=== PATIENT | female | born 1960 | race Caucasian/White ===

== ENCOUNTER → 2016-06-18 | Outpatient (CLI) | payer BC ==
--- NOTE | 2016-06-19 13:56 | MY ---
EXAMINATION: Bilateral digital mammography utilizing CAD. HISTORY: Screening exam. Comparison is made to previous studies dated 05/22/2015, 05/19/2014, 07/08/19 13. FINDINGS: Bilateral scattered fibroglandular densities. No suspicious calcifications, masses or a rchitectural distortions. No pathologic appearing lymph nodes, no abnormal skin thickening or nipp le inversion. CAD highlighted regions appear normal at this time. IMPRESSION: BI-RADS category I - negative mammogram. Continued screening according to ACR-ACS gu idelines suggested. THE FALSE-NEGATIVE RATE OF MAMMOGRAM IS APPROXIMATELY 10%. MANAGEMENT OF A PALPABLE ABNORMALITY MUST BE BASED UPON CLINICAL GROUNDS. SENSITIVITY FOR DETECTION OF ABNORMALITIES IN DENSE BREASTS IS LOW. NOTE: A letter will be sent to the patient regarding findings. [facility] -- [place] [phone] - FAX [phone]
== END ==
LOC: MW.MAM 15:53
PROVIDERS: ATTEND Nurse Practitioner Women's Health
DX: Z12.31 Encounter for screening mammogram for malignant neoplasm of breast (principal)
CPT/HCPCS: G0202; G0202-26

== ENCOUNTER → 2016-06-19 | Outpatient (CLI) | payer BC | END | disposition home or self-care (01) | LOC: MW.CHIM 09:21 | PROVIDERS: ATTEND Internal Medicine | DX: M19.90 Unspecified osteoarthritis, unspecified site (principal) | CPT/HCPCS: 36415; 85652; 86140 ==

== ENCOUNTER 2017-01-03 07:48 | Day surgery (SDC) | payer BC ==
[~2017-01-03 07:48] MED LIST: Bupivacaine 0.25% 10 ML SDV ONE; Dexamethasone/Tobramycin 0.1-0.3% Ophth Oint 3.5 GM Tube ONE
--- NOTE | 2017-01-03 07:55 | PCM.PREANE ---
Preanesthetic Assessment - Anesthesia/Transfusion/Family Hx Anesthesia History: Prior Anesthesia Without Reaction Family History of Anesthesia Reaction: No Transfusion History: Prior Transfusion Reaction Type of Transfusion Reactions: Reports: Unknown - Review of Systems General: No Symptoms Pulmonary: No Symptoms Cardiovascular: No Symptoms Gastrointestinal: No Symptoms Neurological: No Symptoms Other: Reports: None - Physical Assessment Height: 1.73 m Weight: 78.925 kg ASA Class: 2 Mental Status: Alert & Oriented x3 Airway Class: Mallampati = 2 Dentition: Reports: Normal Dentition ROM/Head Extension: Full Lungs: Clear to Auscultation, Normal Respiratory Effort Cardiovascular: Regular Rate, Regular Rhythm - Allergies Allergies/Adverse Reactions: Allergies Allergy/AdvReac Type Severity Reaction Status Date / Time No Known Allergies Allergy Verified 01/02/17 10:55 - Anesthesia Plan Pre-Op Medication Ordered: None - Acknowledgements Anesthesia Type Planned: MAC Pt an Appropriate Candidate for the Planned Anesthesia: Yes Alternatives and Risks of Anesthesia Discussed w Pt/Guardian: Yes Pt/Guardian Understands and Agrees with Anesthesia Plan: Yes PreAnesthesia Questionnaire HEENT History: Reports: Allergic Rhinitis, Other (See Below) Other HEENT History: wears glasses Cardiovascular History: Reports: High Cholesterol Other Cardiovascular History: has right Carotid bruit Respiratory History: Reports: None Gastrointestinal History: Reports: Irritable Bowel Syndrome Other Gastrointestinal History: controls with diet Genitourinary History: Reports: Other (See Below) Other Genitourinary History: hx of Interstitial Cystitis 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: Musculoskeletal History: Reports: Fibromyalgia Other Musculoskeletal History: hands Neurological History: Reports: Other (See Below) Other Neuro History: hx of motion sickness Psychiatric History: Reports: Anxiety, Depression Endocrine/Metabolic History: Reports: None Hematologic History: Reports: Blood Transfusion(s) Immunologic History: Reports: None Oncologic (Cancer) History: Reports: None Dermatologic History: Reports: None - Past Surgical History HEENT Surgical History: Reports: Tonsillectomy GI Surgical History: Reports: Appendectomy, Colonoscopy Female Surgical History: Reports: Hysterectomy, Other (See Below) Other Female Surgeries/Procedures: several Laparoscopies - SUBSTANCE USE Smoking Status *Q: Never Smoker Recreational Drug Use History: No - HOME MEDS Home Medications: Home Meds Cetirizine HCl [Zyrtec] 1 tab PO DAILY 06/14/15 [History] Estradiol [Climara] 1 patch TOP ASDIRECTED 06/14/15 [History] Progesterone,Micronized [Progesterone] 1 cap PO BEDTIME 06/14/15 [History] Venlafaxine HCl [Venlafaxine ER] 1 cap PO DAILY 06/14/15 [History] Meloxicam 7.5 mg PO ASDIRECTED 01/02/17 [History] atorvaSTATin [Lipitor] 10 mg PO DAILY 01/02/17 [History] - CURRENT (IN HOUSE) MEDS Current Meds: Current Medications Hydrocodone Bitart/Acetaminophen ([place] 325-5 Mg) 1 tab PO Q4H PRN PRN Reason: Pain Bupivacaine HCl (Sensorcaine-Mpf 0.25%) 10 ml INJECT ONETIME ONE Stop: 01/03/17 09:01 Cefazolin Sodium/Dextrose 2 gm (/ Premix) 50 mls @ 100 mls/hr IV ONETIME ONE Stop: 01/03/17 09:29 Lactated Ringer's (Ringers, Lactated) 1,000 mls @ 125 mls/hr IV ASDIRECTED [facility] Tobramycin/Dexamethasone (Tobradex Ophth Oint) 2.5 gm EYEBOTH ONETIME ONE Stop: 01/03/17 09:01 Discontinued Medications Bupivacaine HCl (Sensorcaine-Mpf 0.25%) Confirm Administered Dose 10 ml .ROUTE .STK-MED ONE Stop: 01/03/17 07:29 Tobramycin/Dexamethasone (Tobradex Ophth Oint) Confirm Administered Dose 3.5 gm .ROUTE .STK-MED ONE Stop: 01/03/17 07:30
[2017-01-03] MEDS ORDERED: Propofol 200 MG/20 ML SDV ONE ×2 (08:56→10:28)
[2017-01-03] MEDS ORDERED: Ondansetron 4 MG/2 ML SDV ONE (08:56)
[2017-01-03] MEDS ORDERED: Dexamethasone 4 MG/ML 5 ML MDV ONE (08:56)
[2017-01-03] MEDS ORDERED: Midazolam 1 MG/ML 2 ML SDV ONE (08:57)
[2017-01-03] MEDS ORDERED: fentaNYL 100 MCG/2 ML SDV ONE ×2 (08:57→10:18)
[2017-01-03] MEDS ORDERED: Acetaminophen/HYDROcodone 325-5 MG Tab PO PRN (09:00)
[2017-01-03] MEDS ORDERED: Bupivacaine 0.25% 10 ML SDV INJECT ONE (09:00)
[2017-01-03] MEDS ORDERED: ceFAZolin 2 GM in Premix Bag 1 BAG IV ONE (09:00)
[2017-01-03] MEDS ORDERED: Lactated Ringers 1,000 ML IV SCH (09:00)
[2017-01-03] MEDS ORDERED: Dexamethasone/Tobramycin 0.1-0.3% Ophth Oint 3.5 GM Tube EYEBOTH ONE (09:00)
[2017-01-03] MEDS ORDERED: Tetracaine 0.5% Ophth Soln 15 ML Bottle ONE (09:45)
[2017-01-03] MEDS ORDERED: Bupivacaine 0.25% 10 ML SDV ONE (09:48)
[2017-01-03] MEDS ORDERED: Ketorolac 30 MG/ML SDV ONE (10:12)
--- NOTE | 2017-01-03 11:07 | PCM.POSTAN ---
POST ANESTHESIA ASSESSMENT - MENTAL STATUS Mental Status: Alert, Oriented - RESPIRATORY Respiratory Status: Respiratory Rate WNL, Airway Patent, O2 Saturation Stable - CARDIOVASCULAR CV Status: Pulse Rate WNL, Blood Pressure Stable - GASTROINTESTINAL GI Status: No Symptoms - PAIN Pain Score: 0 - POST OP HYDRATION Hydration Status: Adequate & Stable
--- NOTE | 2017-01-03 11:25 | PCM48HPAN ---
Post Anesthesia Note - EVALUATION WITHIN 48HRS OF ANESTHETIC Vital Signs in Normal Range: Yes Patient Participated in Evaluation: Yes Respiratory Function Stable: Yes Airway Patent: Yes Cardiovascular Function Stable: Yes Hydration Status Stable: Yes Pain Control Satisfactory: Yes Nausea and Vomiting Control Satisfactory: Yes Mental Status Recovered: Yes
[2017-01-03 11:53] VITALS: BP 122/64
--- NOTE | 2017-01-10 14:33 | PCM.OPNOTE ---
- General Post-Op/Procedure Note Date of Surgery/Procedure: 01/03/17 Operative Procedure(s): bilateral upper eyelid levator advancement - external Pre Op Diagnosis: blepharoptosis bilateral Post-Op Diagnosis: Same Anesthesia Technique: Local, MAC Primary Surgeon: Anita Joe Capacity Planner: Piedad Peña Complications: None Condition: Good
--- NOTE | 2017-01-10 21:49 | OR ---
SURGEON: LAURA HOLT MD DATE OF PROCEDURE: 01/03/2017 PREOPERATIVE DIAGNOSIS: Bilateral blepharoptosis of upper lids. POSTOPERATIVE DIAGNOSIS: Bilateral blepharoptosis of upper lids. PROCEDURE: Bilateral upper eyelid levator advancement through an external approach. ANESTHESIA: Local, MAC. FIREMAN: JOSE ROBERTO Montiel. INDICATIONS: Ms. 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 It has worsened over time. Her family has this as well. Risks and benefits of external levator advancement were discussed with her, and she was in agreement to proceed. She does have visual obstruction from this. Risks were discussed including, but not limited to bleeding, infection, damage to underlying or overlying structures, possible need for future interventions, and possible scarring. PROCEDURE IN DETAIL: After informed consent was obtained and placed on the chart, the patient was brought to the operating theater and laid in a supine position. After adequate anesthesia and she had been prepped and draped, attention was then paid to the external incision on the upper eyelids as planned for the amount of skin resection likely needed after the levator advancement. A #15 blade was used to dissect through the skin and subcutaneous tissue until direct visualization of the orbicularis muscle. This was divided using Bovie electrocautery and the underlying tissues were appreciated. Attention was then paid to meticulous dissection until the levator itself was appreciated and the upper edge of the tarsus was appreciated. Corneal protectors were placed using TobraDex ointment in order to protect the orbit after anesthetizing this with tetracaine eyedrops. Once the superior edge of the tarsus and the distal edge of the levator were appreciated, the in-between tissue was plicated using deep 4-0 clear nylon sutures. Once adequately placed, the eyelid was appreciated to be in excellent position, and meticulous hemostasis was obtained. A small amount of cautery on the underlying muscle was attempted to allow retraction. Once this was completed, the excess skin was removed from the lid, and this was closed using the Monocryl stitches for the muscle, deep Monocryl stitches for the dermis in a sparing fashion, and then running 6-0 Prolene for the skin. Steri-Strips were placed and dressed with TobraDex ointment. A mirror procedure was completed on the other side, taking out exact measured amounts for symmetry. A little under 1 cm was taken bilaterally for both the levator and the excess skin. Once this was completed, the eyes were appreciated to be just lightly closing with the eyes resting. Corneal protectors were easily removed bilaterally. Eyes were irrigated and dressed with TobraDex ointment as well. The patient tolerated this well, and all counts and needles were correct at the end of the case. FOLLOWUP INSTRUCTIONS: The patient will see us in clinic in 1 week or sooner if any problems, questions, or concerns. FELIPE / KULDIP /[id number] NEREYDA
== END 2017-01-03 12:04 | disposition home or self-care (01) ==
LOC: MW.SDS 07:48
PROVIDERS: ATTEND Plastic Surgery
DX: H02.403 Unspecified ptosis of bilateral eyelids (principal); F41.9 Anxiety disorder, unspecified; F32.9 Major depressive disorder, single episode, unspecified; E78.00 Pure hypercholesterolemia, unspecified; K59.09 Other constipation; Z79.890 Hormone replacement therapy; Z91.09 Other allergy status, other than to drugs and biological substances; Z90.710 Acquired absence of both cervix and uterus; Z79.899 Other long term (current) drug therapy; Z90.49 Acquired absence of other specified parts of digestive tract; Z98.890 Other specified postprocedural states
CPT/HCPCS: 67904; A9270; J0690; J1100; J1885; J2250; J2405; J3010; J7120; 00103; J2704

== ENCOUNTER 2017-05-14 07:24 | Day surgery (SDC) | payer BC ==
[2017-05-14] MEDS ORDERED: Bupivacaine 25%/EPINEPHrine/PF 30 ML ONE (07:32)
[2017-05-14] MEDS ORDERED: Octyl 2-Cyanoacrylate 1 Tube ONE (07:32)
[2017-05-14] MEDS ORDERED: Dexamethasone/Tobramycin 0.1-0.3% Ophth Oint 3.5 GM Tube ONE (07:32)
[2017-05-14] MEDS ORDERED: Dexamethasone/Tobramycin 0.1-0.3% Ophth Oint 3.5 GM Tube EYEBOTH SCH (08:00)
[2017-05-14] MEDS ORDERED: ceFAZolin 2 GM in Premix Bag 1 BAG IV ONE (08:00)
[2017-05-14] MEDS ORDERED: Bupivacaine 0.25%/EPINEPHrine 1:200,000 10 ML SDV INJECT ONE (08:00)
[2017-05-14] MEDS ORDERED: Lactated Ringers 1,000 ML IV SCH (08:00)
[2017-05-14] MEDS ORDERED: Acetaminophen/HYDROcodone 325-5 MG Tab PO PRN (08:00)
--- NOTE | 2017-05-14 08:07 | PCM.PREANE ---
Preanesthetic Assessment - Anesthesia/Transfusion/Family Hx Anesthesia History: Prior Anesthesia Without Reaction Family History of Anesthesia Reaction: No Transfusion History: Prior Transfusion Without Reaction Type of Transfusion Reactions: Reports: Unknown - Review of Systems General: No Symptoms Pulmonary: No Symptoms Cardiovascular: No Symptoms Gastrointestinal: No Symptoms Neurological: No Symptoms Other: Reports: None (except toothache) - Physical Assessment O2 Sat by Pulse Oximetry: 99 Respiratory Rate: 16 Vital Signs: Last Vital Signs Temp 36.8 C 05/14/17 07:56 Pulse 80 05/14/17 07:56 Resp 16 05/14/17 07:56 BP 142/76 H 05/14/17 07:56 Pulse Ox 99 05/14/17 07:56 Height: 1.73 m Weight: 77.111 kg ASA Class: 2 Mental Status: Alert & Oriented x3 Airway Class: Mallampati = 2 Dentition: Reports: Normal Dentition ROM/Head Extension: Full Lungs: Clear to Auscultation, Normal Respiratory Effort Cardiovascular: Regular Rate, Regular Rhythm - Allergies Allergies/Adverse Reactions: Allergies Allergy/AdvReac Type Severity Reaction Status Date / Time No Known Allergies Allergy Verified 05/12/17 10:13 - Anesthesia Plan Pre-Op Medication Ordered: None - Acknowledgements Anesthesia Type Planned: MAC Pt an Appropriate Candidate for the Planned Anesthesia: Yes Alternatives and Risks of Anesthesia Discussed w Pt/Guardian: Yes Pt/Guardian Understands and Agrees with Anesthesia Plan: Yes PreAnesthesia Questionnaire HEENT History: Reports: Allergic Rhinitis, Other (See Below) Other HEENT History: wears glasses Cardiovascular History: Reports: High Cholesterol Other Cardiovascular History: has right Carotid bruit Respiratory History: Reports: None Gastrointestinal History: Reports: Irritable Bowel Syndrome Other Gastrointestinal History: controls with diet Genitourinary History: Reports: Other (See Below) Other Genitourinary History: hx of Interstitial Cystitis 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: Musculoskeletal History: Reports: Fibromyalgia Other Musculoskeletal History: hands Neurological History: Reports: Other (See Below) Other Neuro History: hx of motion sickness Psychiatric History: Reports: Anxiety, Depression Endocrine/Metabolic History: Reports: None Hematologic History: Reports: Blood Transfusion(s) Immunologic History: Reports: None Oncologic (Cancer) History: Reports: None Dermatologic History: Reports: None - Past Surgical History Head Surgeries/Procedures: Reports: None HEENT Surgical History: Reports: Tonsillectomy, Other (See Below) Other HEENT Surgeries/Procedures: previous Levator Repair Cardiovascular Surgical History: Reports: None Respiratory Surgical History: Reports: None GI Surgical History: Reports: Appendectomy, Colonoscopy Female Surgical History: Reports: Hysterectomy, Other (See Below) Other Female Surgeries/Procedures: several Laparoscopies Endocrine Surgical History: Reports: None Neurological Surgical History: Reports: None Musculoskeletal Surgical History: Reports: None Oncologic Surgical History: Reports: None Dermatological Surgical History: Reports: None - SUBSTANCE USE Smoking Status *Q: Never Smoker Recreational Drug Use History: No - HOME MEDS Home Medications: Home Meds Cetirizine HCl [Zyrtec] 1 tab PO DAILY 06/14/15 [History] Estradiol [Climara] 1 patch TOP ASDIRECTED 06/14/15 [History] Progesterone,Micronized [Progesterone] 1 cap PO BEDTIME 06/14/15 [History] Venlafaxine HCl [Venlafaxine ER] 1 cap PO DAILY 06/14/15 [History] Pentosan Polysulfate Sodium [Elmiron] 1 tab PO ASDIRECTED PRN 05/12/17 [History] Rosuvastatin Calcium 10 mg PO DAILY 05/12/17 [History] - CURRENT (IN HOUSE) MEDS Current Meds: Current Medications Hydrocodone Bitart/Acetaminophen ([place] 325-5 Mg) 1 tab PO Q4H PRN PRN Reason: Pain Cefazolin Sodium/Dextrose 2 gm (/ Premix) 50 mls @ 100 mls/hr IV ONETIME ONE Stop: 05/14/17 08:29 Lactated Ringer's (Ringers, Lactated) 1,000 mls @ 125 mls/hr IV ASDIRECTED ANNA Last Admin: 05/14/17 07:53 Dose: 125 mls/hr Tetracaine (Tetracaine 0.5% Ophth Soln) 1 ml EYEBOTH ASDIRECTED ONE Stop: 05/14/17 09:01 Tobramycin/Dexamethasone (Tobradex Ophth Oint) 1 gm EYEBOTH Q4H [facility] Discontinued Medications Bupivacaine HCl/Epinephrine Bitart (Marcaine 0.25%/Epinephrine 1:200,000) 10 ml INJECT ONETIME ONE Stop: 05/14/17 08:01 Bupivacaine HCl/Epinephrine Bitart (Sensorc Mpf 0.25%-Epi 1:[id number]) Confirm Administered Dose 30 mls @ as directed .ROUTE .STK-MED ONE Stop: 05/14/17 07:33 Octyl Cyanoacrylate (Dermabond Advance) Confirm Administered Dose 1 applic .ROUTE .STK-MED ONE Stop: 05/14/17 07:33 Tobramycin/Dexamethasone (Tobradex Ophth Oint) Confirm Administered Dose 3.5 gm .ROUTE .STK-MED ONE Stop: 05/14/17 07:33
[2017-05-14] MEDS ORDERED: Lidocaine 2% 5 ML SDV ONE (08:53)
[2017-05-14] MEDS ORDERED: fentaNYL 100 MCG/2 ML SDV ONE (08:54)
[2017-05-14] MEDS ORDERED: Midazolam 1 MG/ML 2 ML SDV ONE (08:54)
[2017-05-14] MEDS ORDERED: Propofol 200 MG/20 ML SDV ONE (08:54)
[2017-05-14] MEDS ORDERED: ceFAZolin/Dextrose,Iso-Osmotic 2 GM/50 ML Duplex Bag IV ONE (08:58)
[2017-05-14] MEDS ORDERED: Tetracaine 0.5% Ophth Soln 15 ML Bottle EYEBOTH ONE (09:00)
[2017-05-14] MEDS ORDERED: Dexamethasone 4 MG/ML 5 ML MDV ONE (09:29)
--- NOTE | 2017-05-14 11:22 | PCM.POSTAN ---
POST ANESTHESIA ASSESSMENT - MENTAL STATUS Mental Status: Alert, Oriented - RESPIRATORY Respiratory Status: Respiratory Rate WNL, Airway Patent, O2 Saturation Stable - CARDIOVASCULAR CV Status: Pulse Rate WNL, Blood Pressure Stable - GASTROINTESTINAL GI Status: No Symptoms - POST OP HYDRATION Hydration Status: Adequate & Stable
--- NOTE | 2017-05-14 11:23 | PCM48HPAN ---
Post Anesthesia Note - EVALUATION WITHIN 48HRS OF ANESTHETIC Vital Signs in Normal Range: Yes Patient Participated in Evaluation: Yes Respiratory Function Stable: Yes Airway Patent: Yes Cardiovascular Function Stable: Yes Hydration Status Stable: Yes Pain Control Satisfactory: Yes Nausea and Vomiting Control Satisfactory: Yes Mental Status Recovered: Yes Resp Rate: 14
[2017-05-14 12:39] VITALS: BP 128/72
--- NOTE | 2017-05-14 17:15 | PCM.OPNOTE ---
- General Post-Op/Procedure Note Date of Surgery/Procedure: 05/14/17 Operative Procedure(s): bilateral revision of levator advancement for blepharoptosis - previous significant post op swelling Pre Op Diagnosis: recurrence of blepharoptosis after levator advancement Post-Op Diagnosis: Same Anesthesia Technique: Local, MAC Primary Surgeon: Anita Joe Welt Drawer: Piedad Peña Complications: None Condition: Good Free Text/Narrative:: Intake & Output 05/14/17 05/14/17 05/14/17 07:59 15:59 23:59 Intake Total 1300 Balance 1300
--- NOTE | 2017-05-15 19:14 | OR ---
SURGEON: LAURA HOLT MD DATE OF PROCEDURE: 05/14/2017 PREOPERATIVE DIAGNOSIS: Recurrence of blepharoptosis after levator advancement. POSTOPERATIVE DIAGNOSIS: Recurrence of blepharoptosis after levator advancement.. PROCEDURE: Bilateral revision of levator advancement for blepharoptosis with previous significant postop swelling resulting in compromise of the outcome. ANESTHESIA: Local MAC. UTILITY WORKER [place]: JOSE ROBERTO Montiel. INDICATIONS: Ms. Velazco is a 56-year-old female with status post bilateral levator advancement. Unfortunately, postoperatively she had some significant swelling, which resulted in recurrence. Risks and benefits of revision were discussed with her and she was in agreement to proceed. Risks were including, but not limited to, bleeding, infection, damage to underlying or overlying structures, possible need for future interventions, and possible scarring. PROCEDURE IN DETAIL: After informed consent was obtained and placed on the chart, the patient was brought to the operating theater and laid in supine position. After adequate local MAC anesthesia was obtained, the area was prepped and draped and marked appropriately for a minimal skin excision. The area was anesthetized with 0.25% Marcaine and then the previous scar was excised. Dissection was carried through the muscle layer after corneal protector with TobraDex ointment and tetracaine eyedrops were placed. The levator aponeurosis was reached and was appreciated on the left to be significantly scar to the septum. The levator repair was appreciated to be intact, still somewhat attenuated. The previous sutures were removed and the levator was readvanced and secured in place. Once adequately secured, the area was copiously irrigated and meticulous hemostasis was obtained. The septum and the muscular layer were closed using a running 5-0 Monocryl with buried stitches. Once this was completed, meticulous hemostasis and contracture of the muscle was obtained, and the skin was closed using a 6-0 Prolene in a running subcuticular fashion without any Monocryl to avoid swelling and irritation. This was completed on both sides in a symmetric fashion and less scarring was noted on the right side. The ends of the sutures were Steri- Stripped in place, and the patient tolerated this well. All counts and needles were correct at the end of the case. FOLLOWUP INSTRUCTIONS: The patient will see us in one week sooner if any problems, questions, or concerns. FELIPE / KULDIP /[id number]
== END 2017-05-14 11:35 | disposition home or self-care (01) ==
LOC: MW.SDS 07:24
PROVIDERS: ATTEND Plastic Surgery
DX: H02.423 Myogenic ptosis of bilateral eyelids (principal); J30.9 Allergic rhinitis, unspecified; F41.9 Anxiety disorder, unspecified; M19.90 Unspecified osteoarthritis, unspecified site; H61.23 Impacted cerumen, bilateral; K59.09 Other constipation; F32.9 Major depressive disorder, single episode, unspecified; E34.9 Endocrine disorder, unspecified; E78.00 Pure hypercholesterolemia, unspecified; G47.00 Insomnia, unspecified; E89.40 Asymptomatic postprocedural ovarian failure; Z90.710 Acquired absence of both cervix and uterus; Z91.09 Other allergy status, other than to drugs and biological substances; Z79.899 Other long term (current) drug therapy
CPT/HCPCS: 67904; A9270; J0690; J1100; J2250; J3010; J7120; 00103; J2704

== ENCOUNTER 2018-04-30 12:48 | Observation (INO) | payer BC ==
--- NOTE | 2018-04-30 12:58 | EDM.PDOC ---
ED HPI GENERAL MEDICAL PROBLEM - General Chief Complaint: Chest Pain Stated Complaint: CHEST PAIN Time Seen by Provider: 04/30/18 12:58 Source of Information: Reports: Patient History Limitations: Reports: No Limitations - History of Present Illness INITIAL COMMENTS - FREE TEXT/NARRATIVE: HISTORY AND PHYSICAL: History of present illness: Patient is a 57-year-old female here with complaint of chest pain. She states chest began at noon today, came on suddenly and severe. She states she was feeling short of breath and mouth was dry. She states she had some pain in to her left arm. She thought it was GERD and took a Tums but did not improve. She states pain is improved on arrival. She has history of fibromyalgia and anxiety/ depression. Review of systems: As per history of present illness and below otherwise all systems reviewed and negative. Past medical history: As per history of present illness and as reviewed below otherwise noncontributory. Surgical history: As per history of present illness and as reviewed below otherwise noncontributory. Social history: No reported history of drug or alcohol abuse. Family history: As per history of present illness and as reviewed below otherwise noncontributory. Physical exam: General: Patient sitting comfortably in no acute distress and nontoxic appearing HEENT: Atraumatic, normocephalic, pupils reactive, negative for conjunctival pallor or scleral icterus, mucous membranes moist, throat clear, neck supple, nontender, trachea midline. No meningeal signs. Lungs: Clear to auscultation, breath sounds equal bilaterally, chest nontender. Heart: S1S2, regular, negative for clicks, rubs, or overt murmur. Abdomen: Soft, nondistended, nontender. Negative for masses or hepatosplenomegaly. Negative for costovertebral tenderness. Pelvis: Stable nontender. Genitourinary: Deferred. Rectal: Deferred. Extremities: Atraumatic, negative for cords or calf pain. Neurovascular unremarkable. Neuro: Awake, alert, oriented. Cranial nerves II through XII unremarkable. Cerebellum unremarkable. Motor and sensory unremarkable throughout. Exam nonfocal. Notes: Diagnostics: CBC, CMP, troponin, EKG, CXR Therapeutics: Aspirin 324mg chewed Prescriptions: Impression: Chest pain Plan: Discussed with Dr. Ace, patient will be admitted to observation on telemetry for ACS r/o. Definitive disposition and diagnosis as appropriate pending reevaluation and review of above. chest pain Pain Score (Numeric/FACES): 9 - Related Data Allergies Allergy/AdvReac Type Severity Reaction Status Date / Time No Known Allergies Allergy Verified 05/12/17 10:13 Home Meds: Home Meds Cetirizine HCl [Zyrtec] 1 tab PO DAILY 06/14/15 [History] Estradiol [Climara] 1 patch TOP ASDIRECTED 06/14/15 [History] Progesterone,Micronized [Progesterone] 1 cap PO BEDTIME 06/14/15 [History] Venlafaxine HCl [Venlafaxine ER] 1 cap PO DAILY 06/14/15 [History] Pentosan Polysulfate Sodium [Elmiron] 1 tab PO ASDIRECTED PRN 05/12/17 [History] Rosuvastatin Calcium 10 mg PO DAILY 05/12/17 [History] Acetaminophen/HYDROcodone [[place] 325-5 MG] 1 tab PO Q4H PRN #30 tablet 05/14/17 [Rx] Dexamethasone/Tobramycin [Tobradex Ophth Oint] 1 gm EYEBOTH Q4H tube 05/14/17 [ Rx] Past Medical History HEENT History: Reports: Allergic Rhinitis, Other (See Below) Other HEENT History: wears glasses Cardiovascular History: Reports: High Cholesterol Other Cardiovascular History: has right Carotid bruit Respiratory History: Reports: None Gastrointestinal History: Reports: Irritable Bowel Syndrome Other Gastrointestinal History: controls with diet Genitourinary History: Reports: Other (See Below) Other Genitourinary History: hx of Interstitial Cystitis [employer]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: Musculoskeletal History: Reports: Fibromyalgia Other Musculoskeletal History: hands Neurological History: Reports: Other (See Below) Other Neuro History: hx of motion sickness Psychiatric History: Reports: Anxiety, Depression Endocrine/Metabolic History: Reports: None Hematologic History: Reports: Blood Transfusion(s) Immunologic History: Reports: None Oncologic (Cancer) History: Reports: None Dermatologic History: Reports: None - Past Surgical History Head Surgeries/Procedures: Reports: None HEENT Surgical History: Reports: Tonsillectomy, Other (See Below) Other HEENT Surgeries/Procedures: previous Levator Repair Cardiovascular Surgical History: Reports: None Respiratory Surgical History: Reports: None GI Surgical History: Reports: Appendectomy, Colonoscopy Female Surgical History: Reports: Hysterectomy, Other (See Below) Other Female Surgeries/Procedures: several Laparoscopies Endocrine Surgical History: Reports: None Neurological Surgical History: Reports: None Musculoskeletal Surgical History: Reports: None Oncologic Surgical History: Reports: None Dermatological Surgical History: Reports: None ED ROS GENERAL - Review of Systems Review Of Systems: ROS reveals no pertinent complaints other than HPI. ED EXAM, GENERAL - Physical Exam Exam: See Below (see dictation) Course - Vital Signs Last Recorded V/S: Last Vital Signs Temp 98.2 F 04/30/18 13:24 Pulse 85 04/30/18 13:24 Resp 20 04/30/18 13:24 BP 186/105 H 04/30/18 13:24 Pulse Ox 97 04/30/18 13:24 - Orders/Labs/Meds Labs: Laboratory Tests 04/30/18 04/30/18 04/30/18 Range/Units 12:53 12:53 12:53 WBC 7.30 (4.0-11.0) K/uL RBC 5.08 (4.30-5.90) M/uL Hgb 15.3 (12.0-16.0) g/dL Hct 45.6 (36.0-46.0) % MCV 89.8 (80.0-98.0) fL MCH 30.1 (27.0-32.0) pg MCHC 33.6 (31.0-37.0) g/dL RDW Std Deviation 43.0 (28.0-62.0) fl RDW Coeff of Nohemi 13 (11.0-15.0) % Plt Count 210 (150-400) K/uL MPV 9.80 (7.40-12.00) fL Neut % (Auto) 54.1 (48.0-80.0) % Lymph % (Auto) 36.6 (16.0-40.0) % [place] % (Auto) 6.7 (0.0-15.0) % Eos % (Auto) 2.3 (0.0-7.0) % Baso % (Auto) 0.3 (0.0-1.5) % Neut # (Auto) 4.0 (1.4-5.7) K/uL Lymph # (Auto) 2.7 H (0.6-2.4) K/uL [place] # (Auto) 0.5 (0.0-0.8) K/uL Eos # (Auto) 0.2 (0.0-0.7) K/uL Baso # (Auto) 0.0 (0.0-0.1) K/uL Nucleated RBC % 0.0 /100WBC Nucleated RBCs # 0 K/uL INR 0.98 Sodium 139 (136-145) mmol/L Potassium 4.0 (3.5-5.1) mmol/L Chloride 103 (98-107) mmol/L Carbon Dioxide 25.5 (21.0-32.0) mmol/L BUN 13 (7.0-18.0) mg/dL Creatinine 1.0 (0.6-1.0) mg/dL Est Cr Clr Drug Dosing 61.10 mL/min Estimated GFR (MDRD) 56.7 ml/min Glucose 106 (74-106) mg/dL Calcium 9.4 (8.5-10.1) mg/dL Total Bilirubin 0.4 (0.2-1.0) mg/dL AST 31 (15-37) IU/L ALT 30 (14-63) IU/L Alkaline Phosphatase 85 (46-116) U/L Troponin I < 0.050 (0.000-0.056) ng/mL Total Protein 7.5 (6.4-8.2) g/dL Albumin 3.9 (3.4-5.0) g/dL Globulin 3.6 (2.6-4.0) g/dL Albumin/Globulin Ratio 1.1 (0.9-1.6) Meds: Medications Discontinued Medications Generic Name Dose Route Start Last Admin Trade Name Jacque PRN Reason Stop Dose Admin Aspirin 324 mg 04/30/18 13:05 04/30/18 13:10 Aspirin PO 04/30/18 13:06 324 mg ONETIME ONE Administration Departure - Departure Time of Disposition: 14:30 Disposition: Home, Self-Care 01 Condition: Good Clinical Impression: Chest pain Referrals: PCP,Unknown [Primary Care Provider] - Forms: ED Department Discharge
[2018-04-30] MEDS ORDERED: Aspirin 81 MG Tab.Chew PO ONE (13:05)
--- NOTE | 2018-04-30 13:23 | CR ---
EXAMINATION: Portable chest radiograph. HISTORY: Chest pain. FINDINGS: The trachea is midline. The cardiomediastinal silhouette is within normal limits. No pulmonary infiltrates, effusions or pneumothorax. Osseous structures appear unremarkable. IMPRESSION: No acute cardiopulmonary process.
[2018-04-30 13:42] LABS: CHLORIDE,CL 103 mmol/L (98-107); SODIUM,NA 139 mmol/L (136-145)
--- NOTE | 2018-04-30 15:03 | PCM.HP ---
H&P History of Present Illness - General Date of Service: 04/30/18 Admit Problem/Dx: Admission Diagnosis/Problem Admission Diagnosis/Problem Chest pain Source of Information: Patient, Old Records (review of clinic records) History Limitations: Reports: No Limitations - History of Present Illness Initial Comments - Free Text/Narative: This 57 year old female with pmh of fibromyalgia and hyperlipidemia presented to the ED today with complaints of mid sternal chest pain, that started suddenly around noon today and last approximately 1 1/2 hours. She came to the ED within 30 minutes of pain starting. She said the pain started and she felt some pain in her left arm as well with a dry mouth. She denies shortness of breath or diaphoresis. She tried taking a Tums for possible heartburn but that did not help and her urged her to be evaluated. She is unsure of what made the pain better in the ED. Nothing seemed to worsen it, put the pain was nearly a 8/10 very sharp in nature. She denies tobacco use. She reports significant cardiac disease within her family, bother brothers had had MIs, as well as her mother and grandmother all in their 40 and 50s. Reports she had a stress test approximately 3 years ago, which was normal at that time. In the ED, labs all WNL. Troponin negative. EKG, SR, no acute ischemic changes. BP on arrival to ED noted to be 185/105 and subsequent findings lower but still elevated in 150-160/90s. She was given 325 mg ASA in the ED. She will be admitted for chest pain rule out ACS. PCP, Dr Gibbs. chest pain Pain Score (Numeric/FACES): 9 - Related Data Allergies/Adverse Reactions: Allergies Allergy/AdvReac Type Severity Reaction Status Date / Time No Known Allergies Allergy Verified 05/12/17 10:13 Home Medications: Home Meds Cetirizine HCl [Zyrtec] 1 tab PO DAILY 06/14/15 [History] Estradiol [Climara] 1 patch TOP ASDIRECTED 06/14/15 [History] Progesterone,Micronized [Progesterone] 1 cap PO BEDTIME 06/14/15 [History] Venlafaxine HCl [Venlafaxine ER] 1 cap PO DAILY 06/14/15 [History] Pentosan Polysulfate Sodium [Elmiron] 1 tab PO ASDIRECTED PRN 05/12/17 [History] Rosuvastatin Calcium 10 mg PO DAILY 05/12/17 [History] Acetaminophen/HYDROcodone [[place] 325-5 MG] 1 tab PO Q4H PRN #30 tablet 05/14/17 [Rx] Dexamethasone/Tobramycin [Tobradex Ophth Oint] 1 gm EYEBOTH Q4H tube 05/14/17 [ Rx] Past Medical History HEENT History: Reports: Allergic Rhinitis, Other (See Below) Other HEENT History: wears glasses Cardiovascular History: Reports: High Cholesterol. Denies: Hypertension Respiratory History: Reports: None. Denies: COPD Gastrointestinal History: Reports: Irritable Bowel Syndrome. 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 Denies: Diabetes, Type II Hematologic History: Reports: Blood Transfusion(s) Immunologic History: Reports: None Oncologic (Cancer) History: Reports: None Dermatologic History: Reports: None - Past Surgical History Head Surgeries/Procedures: Reports: None HEENT Surgical History: Reports: Tonsillectomy, Other (See Below) Other HEENT Surgeries/Procedures: previous Levator Repair Cardiovascular Surgical History: Reports: None Respiratory Surgical History: Reports: None GI Surgical History: Reports: Appendectomy, Colonoscopy Female Surgical History: Reports: Hysterectomy, Other (See Below) Other Female Surgeries/Procedures: several Laparoscopies Endocrine Surgical History: Reports: None Neurological Surgical History: Reports: None Musculoskeletal Surgical History: Reports: None Oncologic Surgical History: Reports: None Dermatological Surgical History: Reports: None Social & Family History - Family History Family Medical History: Noncontributory - Tobacco Use Smoking Status *Q: Never Smoker - Alcohol Use Alcohol Use History: No - Recreational Drug Use Recreational Drug Use: No - Living Situation & Occupation Living situation: Reports: Occupation: Employed H&P Review of Systems - Review of Systems: Review Of Systems: See Below General: Reports: No Symptoms. Denies: Fever, Chills, Malaise, Weakness, Diaphoresis HEENT: Reports: No Symptoms. Denies: Headaches, Visual Changes Pulmonary: Reports: No Symptoms. Denies: Shortness of Breath, Wheezing Cardiovascular: Reports: Chest Pain (mild 2/10, continuing to improve), Blood Pressure Problem. Denies: Palpitations, Dyspnea on Exertion, Edema, Lightheadedness Gastrointestinal: Reports: No Symptoms. Denies: Abdominal Pain, Black Stool, Bloody Stool, Diarrhea, Nausea, Vomiting Genitourinary: Reports: No Symptoms Musculoskeletal: Reports: No Symptoms Skin: Reports: No Symptoms Neurological: Reports: No Symptoms Exam - Exam Exam: See Below - Vital Signs Vital Signs: Last Vital Signs Temp 98.2 F 04/30/18 13:24 Pulse 85 04/30/18 13:24 Resp 20 04/30/18 13:24 BP 186/105 H 04/30/18 13:24 Pulse Ox 97 04/30/18 13:24 Weight: 74.843 kg - Exam Quality Assessment: No: Supplemental Oxygen General: Alert, Oriented, Cooperative HEENT: Conjunctiva Clear, Mucosa Moist & [place] Lungs: Clear to Auscultation, Normal Respiratory Effort Cardiovascular: Regular Rate, Regular Rhythm, Normal S1, Normal S2. No: Tachycardia, Systolic Murmur GI/Abdominal Exam: Normal Bowel Sounds, Soft, Non-Tender, No Mass Extremities: Normal Inspection, Normal Range of Motion, Non-Tender Neurological: Cranial Nerves Intact Neuro Extensive - Mental Status: Alert, Oriented x3 Neuro Extensive - Motor, Sensory, Reflexes: CN II-XII Intact Psychiatric: Alert, Normal Affect, Normal Mood - Patient Data Lab Results Last 24 hrs: Laboratory Results - last 24 hr 04/30/18 04/30/18 04/30/18 Range/Units 12:53 12:53 12:53 WBC 7.30 (4.0-11.0) K/uL RBC 5.08 (4.30-5.90) M/uL Hgb 15.3 (12.0-16.0) g/dL Hct 45.6 (36.0-46.0) % MCV 89.8 (80.0-98.0) fL MCH 30.1 (27.0-32.0) pg MCHC 33.6 (31.0-37.0) g/dL RDW Std Deviation 43.0 (28.0-62.0) fl RDW Coeff of Nohemi 13 (11.0-15.0) % Plt Count 210 (150-400) K/uL MPV 9.80 (7.40-12.00) fL Neut % (Auto) 54.1 (48.0-80.0) % Lymph % (Auto) 36.6 (16.0-40.0) % [place] % (Auto) 6.7 (0.0-15.0) % Eos % (Auto) 2.3 (0.0-7.0) % Baso % (Auto) 0.3 (0.0-1.5) % Neut # (Auto) 4.0 (1.4-5.7) K/uL Lymph # (Auto) 2.7 H (0.6-2.4) K/uL [place] # (Auto) 0.5 (0.0-0.8) K/uL Eos # (Auto) 0.2 (0.0-0.7) K/uL Baso # (Auto) 0.0 (0.0-0.1) K/uL Nucleated RBC % 0.0 /100WBC Nucleated RBCs # 0 K/uL INR 0.98 Sodium 139 (136-145) mmol/L Potassium 4.0 (3.5-5.1) mmol/L Chloride 103 (98-107) mmol/L Carbon Dioxide 25.5 (21.0-32.0) mmol/L BUN 13 (7.0-18.0) mg/dL Creatinine 1.0 (0.6-1.0) mg/dL Est Cr Clr Drug Dosing 61.10 mL/min Estimated GFR (MDRD) 56.7 ml/min Glucose 106 (74-106) mg/dL Calcium 9.4 (8.5-10.1) mg/dL Total Bilirubin 0.4 (0.2-1.0) mg/dL AST 31 (15-37) IU/L ALT 30 (14-63) IU/L Alkaline Phosphatase 85 (46-116) U/L Troponin I < 0.050 (0.000-0.056) ng/mL Total Protein 7.5 (6.4-8.2) g/dL Albumin 3.9 (3.4-5.0) g/dL Globulin 3.6 (2.6-4.0) g/dL Albumin/Globulin Ratio 1.1 (0.9-1.6) Result Diagrams: 04/30/18 12:53 04/30/18 12:53 EKG INTERPRETATION EKG Date: 04/30/18 Rhythm: NSR [place]: Normal QRS: Normal ST-T: Depressed (mild) QT: Normal - Problem List (1) Chest pain SNOMED Code(s): 10523492 ICD Code: R07.9 - CHEST PAIN, UNSPECIFIED Status: Acute Current Visit: Yes (2) HTN (hypertension) SNOMED Code(s): 21682228 ICD Code: I10 - ESSENTIAL (PRIMARY) HYPERTENSION Status: Acute Current Visit: Yes (3) Fibromyalgia SNOMED Code(s): 515019329 ICD Code: M79.7 - FIBROMYALGIA Status: Chronic Current Visit: Yes (4) Hyperlipidemia SNOMED Code(s): 09184502 ICD Code: E78.5 - HYPERLIPIDEMIA, UNSPECIFIED Status: Chronic Current Visit: Yes Problem List Initiated/Reviewed/Updated: Yes Orders Last 24hrs: Active Orders 24 hr Category Date Time Status Admission Status [Patient Status] [ADT] Stat ADT 04/30/18 14:34 Active Assessment/Plan Comment:: This 57 year old female admitted with chest pain, rule out ACS and new onset HTN 1. Chest pain: Monitor on telemetry, trend troponins, Check A1c and Lipid panel. Will arrange for outpatient stress test. 2. HTN: newly elevated, will start Amlodipine 5 mg daily and monitor BP. 3. Hyperlipidemia: Continue Crestor 3 nights weekly. Encourage ASA daily VTE prophylaxis: SCDs Dispo: 1 day
[2018-04-30] MEDS ORDERED: amLODIPine 5 MG Tab PO SCH (15:30)
[2018-04-30] MEDS ORDERED: Ondansetron 4 MG Tab.DIS PO PRN (16:04)
[2018-04-30] MEDS ORDERED: Acetaminophen 325 MG Tab PO PRN (16:04)
[2018-04-30] MEDS ORDERED: Sodium Chloride 0.9% 2.5 ML Syringe FLUSH PRN (16:04)
[2018-04-30 16:31] LABS: HEMOGLOBIN A1C 5.8 % (4.5-6.2)
[2018-04-30] MEDS ORDERED: Pneumococcal Polyvalent-23 Vaccine 0.5 ML SDV IM ONE (16:48)
[2018-05-01] MEDS: Rosuvastatin 10 MG Tab PO SCH ×2 (08:48→08:54)
[2018-05-01] MEDS ORDERED: amLODIPine 5 MG Tab PO SCH (09:00)
[2018-05-01] MEDS ORDERED: Aspirin 81 MG Tab.Chew PO SCH (09:00)
[2018-05-01] MEDS ORDERED: Venlafaxine 75 MG Cap.ER PO SCH (09:00)
[2018-05-01] MEDS ORDERED: Gabapentin 300 MG Cap PO SCH ×2 (09:00→21:00)
[2018-05-01] MEDS ORDERED: Cetirizine 10 MG Tab PO SCH (09:00)
--- NOTE | 2018-05-01 09:11 | PCM.DCSUM1 ---
Discharge Summary - Hospital Course Brief History: This 57 year old female with pmh of fibromyalgia and hyperlipidemia presented to the ED today with complaints of mid sternal chest pain, that started suddenly around noon today and last approximately 1 1/2 hours. She came to the ED within 30 minutes of pain starting. She said the pain started and she felt some pain in her left arm as well with a dry mouth. She denies shortness of breath or diaphoresis. She tried taking a Tums for possible heartburn but that did not help and her urged her to be evaluated. She is unsure of what made the pain better in the ED. Nothing seemed to worsen it, put the pain was nearly a 8/10 very sharp in nature. She denies tobacco use. She reports significant cardiac disease within her family, bother brothers had had MIs, as well as her mother and grandmother all in their 40 and 50s. Reports she had a stress test approximately 3 years ago, which was normal at that time. In the ED, labs all WNL. Troponin negative. EKG, SR, no acute ischemic changes. BP on arrival to ED noted to be 185/105 and subsequent findings lower but still elevated in 150-160/90s. She was given 325 mg ASA in the ED. She will be admitted for chest pain rule out ACS. PCP, Dr Gibbs. Diagnosis: Stroke: No - Discharge Data Discharge Date: 05/01/18 Discharge Disposition: Home, Self-Care 01 Condition: Stable - Discharge Diagnosis/Problem(s) (1) Chest pain SNOMED Code(s): 09046504 ICD Code: R07.9 - CHEST PAIN, UNSPECIFIED Status: Acute Current Visit: Yes (2) HTN (hypertension) SNOMED Code(s): 87828744 ICD Code: I10 - ESSENTIAL (PRIMARY) HYPERTENSION Status: Acute Current Visit: Yes (3) Fibromyalgia SNOMED Code(s): 771724194 ICD Code: M79.7 - FIBROMYALGIA Status: Chronic Current Visit: Yes (4) Hyperlipidemia SNOMED Code(s): 01740758 ICD Code: E78.5 - HYPERLIPIDEMIA, UNSPECIFIED Status: Chronic Current Visit: Yes - Patient Instructions Diet: Heart Healthy Diet Activity: As Tolerated, Rest and Relax Today Showering/Bathing: July Shower Notify Provider of: Fever, Increased Pain, Swelling and Redness, Drainage, Nausea and/or Vomiting - Discharge Plan *PRESCRIPTION DRUG MONITORING PROGRAM REVIEWED*: Not Applicable *COPY OF PRESCRIPTION DRUG MONITORING REPORT IN PATIENT KEMAR: Not Applicable Prescriptions/Med Rec: amLODIPine [Norvasc] 2.5 mg PO DAILY #30 tablet Home Medications: Home Meds Cetirizine HCl [Zyrtec] 1 tab PO DAILY 06/14/15 [History] Estradiol [Climara] 1 patch TOP ASDIRECTED 06/14/15 [History] Progesterone,Micronized [Progesterone] 1 cap PO BEDTIME 06/14/15 [History] Venlafaxine HCl [Venlafaxine ER] 1 cap PO DAILY 06/14/15 [History] Rosuvastatin Calcium 10 mg PO MOWEFR 05/12/17 [History] Gabapentin [Neurontin] 300 mg PO PRN 04/30/18 [History] Gabapentin [Neurontin] 300 mg PO QAM 04/30/18 [History] Gabapentin [Neurontin] 600 mg PO BEDTIME 04/30/18 [History] Ubidecarenone [Co Q-10] mg PO DAILY 04/30/18 [History] Aspirin 81 mg PO DAILY tab.chew 05/01/18 [Rx] amLODIPine [Norvasc] 2.5 mg PO DAILY #30 tablet 05/01/18 [Rx] Oxygen Therapy Mode: Room Air Patient Handouts: Nonspecific Chest Pain, [id number], Amlodipine tablets Referrals: Clark Gibbs MD [Physician] - - Discharge Summary/Plan Comment DC Time >30 min.: No Discharge Summary/Plan Comment: Discharge Diagnoses: Chest pain- resolved HTN Hyperlipidemia Fibromyalgia Ileana was admitted and monitored after having an episode of chest pain yesterday. Telemetry has no changes. Troponins negative. ACS ruled out. She has been chest pain free since ED. She reports a mild frontal headache. She was started on Amlodipine 5 mg for HTN, BP have been better overnight. Will decrease to 2.5 mg daily with follow up with PCP in 1 week. Encouraged to monitor BP at home. She will be discharged home with outpatient stress test ordered. She will have this in [facility] since this is where her last one was completed. She is to return to the ED or clinic if concerns should arise. - General Info Date of Service: 05/01/18 Admission Dx/Problem (Free Text: Admission Diagnosis/Problem Admission Diagnosis/Problem Chest pain Subjective Update: Reports no further chest pain, mild frontal headache. No dyspnea. No other concerns. Reports feeling ready to go home and agrees with outpatient stress test. Functional Status: Reports: Pain Controlled, Tolerating Diet, Ambulating, Urinating - Review of Systems General: Reports: No Symptoms. Denies: Fever, Weakness, Fatigue HEENT: Reports: Headaches (mild frontal) Pulmonary: Reports: No Symptoms. Denies: Shortness of Breath Cardiovascular: Reports: No Symptoms. Denies: Chest Pain Gastrointestinal: Reports: No Symptoms. Denies: Abdominal Pain, Nausea, Vomiting Genitourinary: Reports: No Symptoms. Denies: Dysuria, Frequency, Burning Musculoskeletal: Reports: No Symptoms Skin: Reports: No Symptoms Neurological: Reports: No Symptoms Psychiatric: Reports: No Symptoms - Patient Data Vitals - Most Recent: Last Vital Signs Temp 98.3 F 05/01/18 07:00 Pulse 81 05/01/18 07:00 Resp 16 05/01/18 07:00 BP 127/71 05/01/18 08:57 Pulse Ox 95 05/01/18 07:00 Weight - Most Recent: 74.843 kg I&O - Last 24 hours: Intake & Output 04/30/18 05/01/18 05/01/18 22:59 06:59 14:59 Intake Total 600 Output Total 700 Balance -100 Lab Results - Last 24 hrs: Laboratory Results - last 24 hr 04/30/18 04/30/18 04/30/18 Range/Units 12:53 12:53 12:53 WBC 7.30 (4.0-11.0) K/uL RBC 5.08 (4.30-5.90) M/uL Hgb 15.3 (12.0-16.0) g/dL Hct 45.6 (36.0-46.0) % MCV 89.8 (80.0-98.0) fL MCH 30.1 (27.0-32.0) pg MCHC 33.6 (31.0-37.0) g/dL RDW Std Deviation 43.0 (28.0-62.0) fl RDW Coeff of Nohemi 13 (11.0-15.0) % Plt Count 210 (150-400) K/uL MPV 9.80 (7.40-12.00) fL Neut % (Auto) 54.1 (48.0-80.0) % Lymph % (Auto) 36.6 (16.0-40.0) % [place] % (Auto) 6.7 (0.0-15.0) % Eos % (Auto) 2.3 (0.0-7.0) % Baso % (Auto) 0.3 (0.0-1.5) % Neut # (Auto) 4.0 (1.4-5.7) K/uL Lymph # (Auto) 2.7 H (0.6-2.4) K/uL [place] # (Auto) 0.5 (0.0-0.8) K/uL Eos # (Auto) 0.2 (0.0-0.7) K/uL Baso # (Auto) 0.0 (0.0-0.1) K/uL Nucleated RBC % 0.0 /100WBC Nucleated RBCs # 0 K/uL INR 0.98 Sodium 139 (136-145) mmol/L Potassium 4.0 (3.5-5.1) mmol/L Chloride 103 (98-107) mmol/L Carbon Dioxide 25.5 (21.0-32.0) mmol/L BUN 13 (7.0-18.0) mg/dL Creatinine 1.0 (0.6-1.0) mg/dL Est Cr Clr Drug Dosing 61.10 mL/min Estimated GFR (MDRD) 56.7 ml/min Glucose 106 (74-106) mg/dL Hemoglobin A1c (4.5-6.2) % Calcium 9.4 (8.5-10.1) mg/dL Total Bilirubin 0.4 (0.2-1.0) mg/dL AST 31 (15-37) IU/L ALT 30 (14-63) IU/L Alkaline Phosphatase 85 (46-116) U/L Troponin I < 0.050 (0.000-0.056) ng/mL Total Protein 7.5 (6.4-8.2) g/dL Albumin 3.9 (3.4-5.0) g/dL Globulin 3.6 (2.6-4.0) g/dL Albumin/Globulin Ratio 1.1 (0.9-1.6) Triglycerides (0-200) mg/dL Cholesterol (50-200) mg/dL LDL Cholesterol, Calc (60-180) mg/dL VLDL Cholesterol (5-55) mg/dL HDL Cholesterol (40-60) mg/dL Cholesterol/HDL Ratio (3.3-6.0) 04/30/18 04/30/18 05/01/18 Range/Units 12:53 19:19 00:58 WBC (4.0-11.0) K/uL RBC (4.30-5.90) M/uL Hgb (12.0-16.0) g/dL Hct (36.0-46.0) % MCV (80.0-98.0) fL MCH (27.0-32.0) pg MCHC (31.0-37.0) g/dL RDW Std Deviation (28.0-62.0) fl RDW Coeff of Nohemi (11.0-15.0) % Plt Count (150-400) K/uL MPV (7.40-12.00) fL Neut % (Auto) (48.0-80.0) % Lymph % (Auto) (16.0-40.0) % [place] % (Auto) (0.0-15.0) % Eos % (Auto) (0.0-7.0) % Baso % (Auto) (0.0-1.5) % Neut # (Auto) (1.4-5.7) K/uL Lymph # (Auto) (0.6-2.4) K/uL [place] # (Auto) (0.0-0.8) K/uL Eos # (Auto) (0.0-0.7) K/uL Baso # (Auto) (0.0-0.1) K/uL Nucleated RBC % /100WBC Nucleated RBCs # K/uL INR Sodium (136-145) mmol/L Potassium (3.5-5.1) mmol/L Chloride (98-107) mmol/L Carbon Dioxide (21.0-32.0) mmol/L BUN (7.0-18.0) mg/dL Creatinine (0.6-1.0) mg/dL Est Cr Clr Drug Dosing mL/min Estimated GFR (MDRD) ml/min Glucose (74-106) mg/dL Hemoglobin A1c 5.8 (4.5-6.2) % Calcium (8.5-10.1) mg/dL Total Bilirubin (0.2-1.0) mg/dL AST (15-37) IU/L ALT (14-63) IU/L Alkaline Phosphatase (46-116) U/L Troponin I < 0.050 < 0.050 (0.000-0.056) ng/mL Total Protein (6.4-8.2) g/dL Albumin (3.4-5.0) g/dL Globulin (2.6-4.0) g/dL Albumin/Globulin Ratio (0.9-1.6) Triglycerides (0-200) mg/dL Cholesterol (50-200) mg/dL LDL Cholesterol, Calc (60-180) mg/dL VLDL Cholesterol (5-55) mg/dL HDL Cholesterol (40-60) mg/dL Cholesterol/HDL Ratio (3.3-6.0) 05/01/18 Range/Units 05:10 WBC (4.0-11.0) K/uL RBC (4.30-5.90) M/uL Hgb (12.0-16.0) g/dL Hct (36.0-46.0) % MCV (80.0-98.0) fL MCH (27.0-32.0) pg MCHC (31.0-37.0) g/dL RDW Std Deviation (28.0-62.0) fl RDW Coeff of Nohemi (11.0-15.0) % Plt Count (150-400) K/uL MPV (7.40-12.00) fL Neut % (Auto) (48.0-80.0) % Lymph % (Auto) (16.0-40.0) % [place] % (Auto) (0.0-15.0) % Eos % (Auto) (0.0-7.0) % Baso % (Auto) (0.0-1.5) % Neut # (Auto) (1.4-5.7) K/uL Lymph # (Auto) (0.6-2.4) K/uL [place] # (Auto) (0.0-0.8) K/uL Eos # (Auto) (0.0-0.7) K/uL Baso # (Auto) (0.0-0.1) K/uL Nucleated RBC % /100WBC Nucleated RBCs # K/uL INR Sodium (136-145) mmol/L Potassium (3.5-5.1) mmol/L Chloride (98-107) mmol/L Carbon Dioxide (21.0-32.0) mmol/L BUN (7.0-18.0) mg/dL Creatinine (0.6-1.0) mg/dL Est Cr Clr Drug Dosing mL/min Estimated GFR (MDRD) ml/min Glucose (74-106) mg/dL Hemoglobin A1c (4.5-6.2) % Calcium (8.5-10.1) mg/dL Total Bilirubin (0.2-1.0) mg/dL AST (15-37) IU/L ALT (14-63) IU/L Alkaline Phosphatase (46-116) U/L Troponin I (0.000-0.056) ng/mL Total Protein (6.4-8.2) g/dL Albumin (3.4-5.0) g/dL Globulin (2.6-4.0) g/dL Albumin/Globulin Ratio (0.9-1.6) Triglycerides 47 (0-200) mg/dL Cholesterol 149 (50-200) mg/dL LDL Cholesterol, Calc 77 (60-180) mg/dL VLDL Cholesterol 9 (5-55) mg/dL HDL Cholesterol 63 H (40-60) mg/dL Cholesterol/HDL Ratio 2.4 L (3.3-6.0) Med Orders - Current: Current Medications Acetaminophen (Tylenol) 650 mg PO Q4H PRN PRN Reason: Pain (mild 1-3) Last Admin: 04/30/18 21:43 Dose: 650 mg Amlodipine Besylate (Norvasc) 2.5 mg PO DAILY [facility] Last Admin: 05/01/18 08:57 Dose: 2.5 mg Aspirin (Aspirin) 81 mg PO DAILY [facility] Last Admin: 05/01/18 08:45 Dose: 81 mg Cetirizine HCl (Zyrtec) 10 mg PO DAILY [facility] Last Admin: 05/01/18 08:44 Dose: 10 mg Gabapentin (Neurontin) 300 mg PO QAM [facility] Last Admin: 05/01/18 08:45 Dose: 300 mg Gabapentin (Neurontin) 600 mg PO BEDTIME [facility] Ondansetron HCl (Zofran Odt) 4 mg PO Q4H PRN PRN Reason: nausea, able to take PO Rosuvastatin Calcium (Crestor) 10 mg PO MOWEFR [facility] Last Admin: 05/01/18 08:54 Dose: Not Given Sodium Chloride (Saline Flush) 2.5 ml FLUSH ASDIRECTED PRN PRN Reason: Keep Vein Open Venlafaxine HCl (Effexor Xr) 75 mg PO DAILY [facility] Last Admin: 05/01/18 08:44 Dose: 75 mg Discontinued Medications Amlodipine Besylate (Norvasc) 5 mg PO DAILY [facility] Last Admin: 04/30/18 16:03 Dose: 5 mg Aspirin (Aspirin) 324 mg PO ONETIME ONE Stop: 04/30/18 13:06 Last Admin: 04/30/18 13:10 Dose: 324 mg Pneumococcal Polyvalent Vaccine (Pneumovax 23) 0.5 ml IM .ONCE ONE Stop: 04/30/18 16:49 - Exam General: Reports: Alert, Oriented, Cooperative, No Acute Distress Lungs: Reports: Clear to Auscultation, Normal Respiratory Effort Cardiovascular: Reports: Regular Rate, Regular Rhythm GI/Abdominal Exam: Normal Bowel Sounds, Soft, Non-Tender Neurological: Reports: No New Focal Deficit Psy/Mental Status: Reports: Alert, Normal Affect, Normal Mood
[2018-05-01 11:21] VITALS: BP 157/90
== END 2018-05-01 11:15 | disposition home or self-care (01) ==
LOC: MW.ED 12:48 → MW.MS 14:34
PROVIDERS: ADMIT Internal Medicine; ATTEND Internal Medicine
DX: R07.9 Chest pain, unspecified (principal); I10 Essential (primary) hypertension; M79.7 Fibromyalgia; E78.5 Hyperlipidemia, unspecified; J30.9 Allergic rhinitis, unspecified; K58.9 Irritable bowel syndrome, unspecified; E78.00 Pure hypercholesterolemia, unspecified; F41.9 Anxiety disorder, unspecified; F32.9 Major depressive disorder, single episode, unspecified; Z79.82 Long term (current) use of aspirin; Z79.899 Other long term (current) drug therapy
CPT/HCPCS: 36415; 71045; 80053; 80061; 83036; 84484; 85025; 85610; 90732; 93005; 99285; A9270; G0009; G0378; 99284

== ENCOUNTER 2018-08-16 07:32 | Emergency (ER) | payer BC ==
--- NOTE | 2018-08-16 07:48 | EDM.PDOC ---
ED HPI GENERAL MEDICAL PROBLEM - General Chief Complaint: Flank Pain Stated Complaint: BACK/LT SIDE PAIN Time Seen by Provider: 08/16/18 07:44 - History of Present Illness INITIAL COMMENTS - FREE TEXT/NARRATIVE: HISTORY AND PHYSICAL: History of present illness: Patient is a 58-year-old female with history of fibromyalgia presents with concern of left flank pain she noticed that the same does been no urinary symptoms she denies history urolithiasis denies trauma denies fever chills nausea vomiting Review of systems: As per history of present illness and below otherwise all systems reviewed and negative. Past medical history: As per history of present illness and as reviewed below otherwise noncontributory. Surgical history: As per history of present illness and as reviewed below otherwise noncontributory. Social history: No reported history of drug or alcohol abuse. Family history: As per history of present illness and as reviewed below otherwise noncontributory. Physical exam: HEENT: Atraumatic, normocephalic, pupils reactive, negative for conjunctival pallor or scleral icterus, mucous membranes moist, throat clear, neck supple, nontender, trachea midline. Lungs: Clear to auscultation, breath sounds equal bilaterally, chest nontender. Heart: S1S2, regular, negative for clicks, rubs, or JVD. Abdomen: Soft, nondistended, nontender. Negative for masses or hepatosplenomegaly. Equivocal costovertebral tenderness. Pelvis: Stable nontender. Genitourinary: Deferred. Rectal: Deferred. Extremities: Atraumatic, negative for cords or calf pain. Neurovascular unremarkable. Neuro: Awake, alert, oriented. Cranial nerves II through XII unremarkable. Cerebellum unremarkable. Motor and sensory unremarkable throughout. Exam nonfocal. Diagnostics: CBC CMP UA CT abdomen and pelvis Therapeutics: None Impression: #1 history of fibromyalgia #2 left flank pain Definitive disposition and diagnosis as appropriate pending reevaluation and review of above. Left Flank Pain Score (Numeric/FACES): 5 - Related Data Allergies Allergy/AdvReac Type Severity Reaction Status Date / Time No Known Allergies Allergy Verified 08/16/18 07:45 Home Meds: Home Meds Cetirizine HCl [Zyrtec] 1 tab PO DAILY 06/14/15 [History] Estradiol [Climara] 1 patch TOP ASDIRECTED 06/14/15 [History] Progesterone,Micronized [Progesterone] 1 cap PO BEDTIME 06/14/15 [History] Venlafaxine HCl [Venlafaxine ER] 1 cap PO DAILY 06/14/15 [History] Rosuvastatin Calcium 10 mg PO MOWEFR 05/12/17 [History] Gabapentin [Neurontin] 300 mg PO PRN 04/30/18 [History] Gabapentin [Neurontin] 300 mg PO QAM 04/30/18 [History] Gabapentin [Neurontin] 600 mg PO BEDTIME 04/30/18 [History] Ubidecarenone [Co Q-10] mg PO DAILY 04/30/18 [History] Aspirin 81 mg PO DAILY tab.chew 05/01/18 [Rx] amLODIPine [Norvasc] 2.5 mg PO DAILY #30 tablet 05/01/18 [Rx] Past Medical History HEENT History: Reports: Allergic Rhinitis, Other (See Below) Other HEENT History: wears glasses Cardiovascular History: Reports: High Cholesterol, Other (See Below) Other Cardiovascular History: On Crestor Respiratory History: Reports: None Gastrointestinal History: Reports: Irritable Bowel Syndrome Other Gastrointestinal History: controls with diet Genitourinary History: Reports: Other (See Below) Other Genitourinary History: hx of Interstitial Cystitis MATERIALS RECYCLER History: Reports: Endometriosis, Other MATERIALS RECYCLER History: Placenta Previa requiring blood transfusion Musculoskeletal History: Reports: Fibromyalgia Other Musculoskeletal History: hands Neurological History: Reports: Other (See Below) Other Neuro History: hx of motion sickness Psychiatric History: Reports: Anxiety Other Psychiatric History: On Effexor Endocrine/Metabolic History: Reports: None Hematologic History: Reports: Blood Transfusion(s), Other (See Below) Other Hematologic History: reaction to blood transfusion Immunologic History: Reports: None Oncologic (Cancer) History: Reports: None Dermatologic History: Reports: None - Past Surgical History Head Surgeries/Procedures: Reports: None HEENT Surgical History: Reports: Tonsillectomy, Other (See Below) Other HEENT Surgeries/Procedures: previous Levator Repair Cardiovascular Surgical History: Reports: None Respiratory Surgical History: Reports: None GI Surgical History: Reports: Appendectomy, Colonoscopy Female Surgical History: Reports: Hysterectomy, Other (See Below) Other Female Surgeries/Procedures: several Laparoscopies Endocrine Surgical History: Reports: None Neurological Surgical History: Reports: None Musculoskeletal Surgical History: Reports: None Oncologic Surgical History: Reports: None Dermatological Surgical History: Reports: None Social & Family History - Family History Family Medical History: Noncontributory Cardiac: Reports: IA Other Cardiac Family History: Brother of " maker". Grandma had IA at 49. - Caffeine Use Caffeine Use: Reports: Coffee, Tea - Living Situation & Occupation Living situation: Reports: Occupation: Employed ED ROS GENERAL - Review of Systems Review Of Systems: ROS reveals no pertinent complaints other than HPI. ED EXAM, GENERAL - Physical Exam Exam: See Below (See dictation) Course - Vital Signs Last Recorded V/S: Last Vital Signs Temp 36.6 C 08/16/18 08:39 Pulse 86 08/16/18 08:39 Resp 16 08/16/18 07:45 BP 134/78 08/16/18 08:39 Pulse Ox 97 08/16/18 08:39 - Orders/Labs/Meds Labs: Laboratory Tests 08/16/18 08/16/18 08/16/18 Range/Units 07:45 07:45 08:47 WBC 5.23 (4.0-11.0) K/uL RBC 5.18 (4.30-5.90) M/uL Hgb 15.4 (12.0-16.0) g/dL Hct 47.4 H (36.0-46.0) % MCV 91.5 (80.0-98.0) fL MCH 29.7 (27.0-32.0) pg MCHC 32.5 (31.0-37.0) g/dL RDW Std Deviation 43.0 (28.0-62.0) fl RDW Coeff of Nohemi 13 (11.0-15.0) % Plt Count 210 (150-400) K/uL MPV 9.70 (7.40-12.00) fL Neut % (Auto) 48.7 (48.0-80.0) % Lymph % (Auto) 40.0 (16.0-40.0) % [place] % (Auto) 7.5 (0.0-15.0) % Eos % (Auto) 3.4 (0.0-7.0) % Baso % (Auto) 0.4 (0.0-1.5) % Neut # (Auto) 2.6 (1.4-5.7) K/uL Lymph # (Auto) 2.1 (0.6-2.4) K/uL [place] # (Auto) 0.4 (0.0-0.8) K/uL Eos # (Auto) 0.2 (0.0-0.7) K/uL Baso # (Auto) 0.0 (0.0-0.1) K/uL Nucleated RBC % 0.0 /100WBC Nucleated RBCs # 0 K/uL Sodium 138 (136-145) mmol/L Potassium 3.9 (3.5-5.1) mmol/L Chloride 105 (98-107) mmol/L Carbon Dioxide 26.6 (21.0-32.0) mmol/L BUN 16 (7.0-18.0) mg/dL Creatinine 0.9 (0.6-1.0) mg/dL Est Cr Clr Drug Dosing 67.05 mL/min Estimated GFR (MDRD) > 60.0 ml/min Glucose 109 H (74-106) mg/dL Calcium 8.7 (8.5-10.1) mg/dL Total Bilirubin 0.4 (0.2-1.0) mg/dL AST 23 (15-37) IU/L ALT 21 (14-63) IU/L Alkaline Phosphatase 77 (46-116) U/L Total Protein 7.4 (6.4-8.2) g/dL Albumin 3.9 (3.4-5.0) g/dL Globulin 3.5 (2.6-4.0) g/dL Albumin/Globulin Ratio 1.1 (0.9-1.6) Urine Color YELLOW Urine Appearance CLEAR Urine pH 6.0 (5.0-8.0) Ur Specific [place] 1.020 (1.001-1.035) Urine Protein NEGATIVE (NEGATIVE) mg/dL Urine Glucose (UA) NEGATIVE (NEGATIVE) mg/dL Urine Ketones NEGATIVE (NEGATIVE) mg/dL Urine Occult Blood MODERATE H (NEGATIVE) Urine Nitrite NEGATIVE (NEGATIVE) Urine Bilirubin NEGATIVE (NEGATIVE) Urine Urobilinogen 0.2 (<2.0) EU/dL Ur Leukocyte Esterase NEGATIVE (NEGATIVE) Urine RBC 10-15 (0-2/HPF) Urine WBC 0-1 (0-5/HPF) Ur Epithelial Cells FEW (NONE-FEW) Urine Bacteria FEW (NEGATIVE) Urine Mucus LIGHT (NONE-MOD) Meds: Medications Discontinued Medications Generic Name Dose Route Start Last Admin Trade Name Jacque PRN Reason Stop Dose Admin Ketorolac Tromethamine 30 mg 08/16/18 08:11 08/16/18 08:16 Toradol IM 08/16/18 08:12 30 mg ONETIME ONE Administration Departure - Departure Time of Disposition: 09:30 Disposition: Home, Self-Care 01 Condition: Good Clinical Impression: Flank pain, Fibromyalgia, Microscopic hematuria - Discharge Information Referrals: Mary Pierre NP [Primary Care Provider] - Forms: ED Department Discharge Additional Instructions: The following information is given to patients seen in the emergency department who are being discharged to home. This information is to outline your options for follow-up care. We provide all patients seen in our emergency department with a follow-up referral. The need for follow-up, as well as the timing and circumstances, are variable depending upon the specifics of your emergency department visit. If you don't have a primary care physician on staff, we will provide you with a referral. We always advise you to contact your personal physician following an emergency department visit to inform them of the circumstance of the visit and for follow-up with them and/or the need for any referrals to a consulting specialist. The emergency department will also refer you to a specialist when appropriate. This referral assures that you have the opportunity for followup care with a specialist. All of these measure are taken in an effort to provide you with optimal care, which includes your followup. Under all circumstances we always encourage you to contact your private physician who remains a resource for coordinating your care. When calling for followup care, please make the office aware that this follow-up is from your recent emergency room visit. If for any reason you are refused follow-up, please contact the [facility] emergency department at and asked to speak to the emergency department charge nurse. [facility] Specialty Care - Urology [address] [place] [id number] Cipro as prescribed follow-up with urology above continue current medications return as needed as discussed
[2018-08-16] MEDS ORDERED: Ketorolac 30 MG/ML SDV IM ONE (08:11)
[2018-08-16 08:27] LABS: CHLORIDE,CL 105 mmol/L (98-107); SODIUM,NA 138 mmol/L (136-145)
--- NOTE | 2018-08-16 08:30 | CT ---
INDICATION: Back and left-sided abdominal pain. TECHNIQUE: Noncontrast 3 mm axial imaging has been performed through the abdomen and pelvis. Sagittal and coronal reconstructions have been obtained. FINDINGS: Multiple circumscribed low dense lesions are noted throughout the liver most compatible with cysts. The remaining noncontrast liver is unremarkable. Gallbladder is fluid filled and unremarkable. The spleen, pancreas, bilateral adrenal glands are within normal limits. The kidneys demonstrate no radiopaque kidney stones. No edema is noted. No hydronephrosis is noted. No ureteric stones are identified bilaterally. Retroperitoneum and iliac rodrigo chain demonstrate no lymphadenopathy. Patient is status post hysterectomy. No free fluid noted. There is no evidence for bowel obstruction. No evidence for diverticulitis. Moderate amount retained stool is noted within the colon. The appendix is not well visualized. Small bowel is decompressed. Urinary bladder is decompressed. IMPRESSION: 1. Essentially negative CT scan of the abdomen and pelvis. 2. Multiple circumscribed hypodense lesions are noted within the liver most compatible with cysts. 3. No radiopaque kidney stones noted. No ureteric stones or hydronephrosis is noted. No perinephric edema is seen. 4. Patient status post hysterectomy. 5. No evidence for bowel obstruction. There is retained stool noted within the colon. No significant free fluid is seen. Dictated by Pito Keys MD @ 08/16/2018 8:30:02 AM Please note that all CT scans at this facility use dose modulation, iterative reconstruction, and/or weight-based dosing when appropriate to reduce radiation dose to as low as reasonably achievable. Dictated by: Pito Keys MD @ 08/16/2018 08:30:27 (Electronically Signed)
[2018-08-16 09:56] VITALS: BP 156/79
== END 2018-08-16 09:54 | disposition home or self-care (01) ==
LOC: MW.ED 07:32
DX: R10.9 Unspecified abdominal pain (principal); R31.29 Other microscopic hematuria; M79.7 Fibromyalgia; Z98.890 Other specified postprocedural states; Z90.49 Acquired absence of other specified parts of digestive tract; Z90.710 Acquired absence of both cervix and uterus; F41.9 Anxiety disorder, unspecified; Z79.82 Long term (current) use of aspirin; Z79.899 Other long term (current) drug therapy
CPT/HCPCS: 36415; 74176; 80053; 81001; 85025; 96372; 99284; J1885; 99283

== ENCOUNTER 2024-04-14 16:19 | Emergency (ER) | payer MEDICARE ==
[2024-04-14] MEDS ORDERED: Sodium Chloride 0.9% 10 ML Syringe FLUSH PRN (16:23)
[2024-04-14] MEDS ORDERED: Sodium Chloride 0.9% 2.5 ML Syringe FLUSH PRN (16:23)
[2024-04-14 16:45] LABS: BASOPHILS ABSOLUTE AUTO 0.03 K/uL (0.00-0.20); BASOPHILS PERCENT AUTO 0.4 % (0.0-1.0); EOSINOPHILS ABSOLUTE AUTO 0.14 K/uL (0.00-0.45); EOSINOPHILS PERCENT AUTO 1.8 % (0.0-6.0); HEMATOCRIT 42.4 % (37.0-47.0); HEMOGLOBIN 13.8 g/dL (12.0-16.0); IMMATURE GRAN ABSOLUTE AUTO 0.01 K/uL (0.00-0.05); IMMATURE GRAN PERCENT AUTO 0.1 % (0.0-0.4); LYMPHOCYTES ABSOLUTE AUTO 2.52 K/uL (1.00-4.80); LYMPHOCYTES PERCENT AUTO 33.3 % (24.0-44.0); MEAN CORPUSCULAR HEMOGLOBIN 28.6 pg (28.0-32.0); MEAN CORPUSCULAR HGB CONC 32.5 g/dL (32.0-36.0); MEAN PLATELET VOLUME 9.4 fL (9.4-12.3); MONOCYTES ABSOLUTE AUTO 0.62 K/uL (0.00-0.80); MONOCYTES PERCENT AUTO 8.2 % (0.0-8.0); NEUTROPHILS ABSOLUTE AUTO 4.25 K/uL (1.80-7.70); NEUTROPHILS PERCENT AUTO 56.2 % (41.0-71.0); PLATELET COUNT,PLT 209 K/uL (150-400); RED BLOOD CELL COUNT 4.82 M/uL (4.10-5.30); WHITE BLOOD CELL COUNT,WBC 7.57 K/uL (3.9-11.3)
[2024-04-14] MEDS: Alum Hydrox/Mag Hydrox/Simeth 15 ML, Lidocaine 2% 5 ML PO STA (17:03)
[2024-04-14 17:18] LABS: A/G RATIO 1.3 (0.9-1.6); ALBUMIN 3.7 g/dL (3.4-5.0); BILIRUBIN TOTAL 0.4 mg/dL (0.2-1.0); CARBON DIOXIDE,CO2 25.2 mmol/L (21.0-32.0); EST CRCL DRUG DOSING (CG) 56.58 mL/min; POTASSIUM,K 4.3 mmol/L (3.5-5.1); PROTEIN TOTAL,TP 6.5 g/dL (6.4-8.2)
[2024-04-14 17:20] LABS: MAGNESIUM 1.9 mg/dL (1.8-2.4)
[2024-04-14 18:51] VITALS: BP 136/69; PULSE 81
== END 2024-04-14 18:45 | disposition home or self-care (01) ==
LOC: MW.ED 16:19
DX: R07.1 Chest pain on breathing (principal); I10 Essential (primary) hypertension; Z90.49 Acquired absence of other specified parts of digestive tract; Z90.710 Acquired absence of both cervix and uterus; Z91.040 Latex allergy status; Z79.899 Other long term (current) drug therapy; Z75.8 Other problems related to medical facilities and other health care
CPT/HCPCS: 36415; 71045; 80053; 83690; 83735; 84484; 85025; 85379; 87428; 93005; 99285; A9270